=== PATIENT | female | born 2000 | race African-American/Black ===

== ENCOUNTER 2024-10-17 16:39 | Emergency (ER) | payer MEDICAID ==
[~2024-10-17] VITALS: Ht 170.2 cm; Wt 62.0 kg
[2024-10-17 16:45] VITALS: O2SAT 99
[2024-10-17 18:07] VITALS: BP 96/69; PULSE 77; RESP 18; TEMP 36.7; O2SAT 100
== END 2024-10-17 18:10 | disposition home or self-care (01) ==
LOC: ER 16:39
DX: M79.631 Pain in right forearm (principal)
CPT/HCPCS: 99283